=== PATIENT | female | born 1995 | race Caucasian/White ===

== ENCOUNTER 2017-01-22 21:33 | Inpatient (IN) | payer OTHER, MEDICAID ==
[~2017-01-22] VITALS: Ht 165.1 cm; Wt 90.7 kg
--- NOTE | ~2017-01-22 | OR ---
PATIENT'S NAME: LUDMILA [facility] AGE: 21 Y [address] ROOM: [place] [address] LOCATION: GOBS ADMIT DATE: 01/22/2017 OR/Procedure Report DISCHARGE DATE: FAMILY PHYSICIAN: Ilsa Christie MD ATTENDING PHYSICIAN: Ilsa Christie SURGEON: Ilsa Christie MD HOSPITALITY ASSOCIATE: DATE OF PROCEDURE: 01/22/2017 PROCEDURE: Ludmila is a 21-year-old, 2, para 0, who presents at 38 and 6 weeks gestational age with spontaneous rupture of membranes and some intermittent uterine contractions. heart tones were category 1. She was watched for an hour, had no cervical change, was 2 cm when she arrived. Labor was then augmented with Pitocin. She progressed to 3 to 4 cm, got an epidural, and finally progressed to complete. With approximately 1 hour of pushing, delivered a 7-pound and 1 ounce female at 1242 hours with a moderate shoulder dystocia, which was relieved with McBurney maneuver and suprapubic pressure. After the delivery of the , the nose and the mouth were suctioned. was placed on mother's tummy. were 8 at 1 minute and 9 at 5 minutes. Cord was then cut. Cord blood was collected. Placenta was delivered intact with a 3-vessel cord. There was some free flow of vaginal bleeding, which improved with fundal massage and IV oxytocin. The placenta was then delivered intact with a 3-vessel cord. The cervix was viewed and there was no tears. She had some small periurethral tears which were not bleeding and an abrasion at the inferior introitus, which was not bleeding. Estimated blood loss was 300 mL at delivery. Fluid was clear. Sponge and needle count were correct. Lumdila tolerated the delivery well and will continue with care. MD MIRACLE CHE/carolinal /[id number] d: 01/23/172029 t: 02/07/17 1500, OPERATIVE SUMMARY
[~2017-01-22 21:33] MED LIST: PRENATAL 1+1)(P1 TAB PO; TUMS200 MG PO; ZOFRAN4 MG PO
[2017-01-22 23:04] LABS: BASOPHIL % 0.2 %; EOSINOPHIL % 0.3 %; HEMATOCRIT 35.5 % (33.0-46.0); HEMOGLOBIN 11.7 g/dL (11.0-15.0); IMMATURE GRANULOCYTE # 0.1 K/uL (0.0-0.3); MCH 27.9 pg (27.0-34.0); MCV 84.5 fl (83.0-98.0); MONOCYTE # 0.4 K/uL (0.0-1.0); MONOCYTE % 4.6 %; MPV 11.7 fl (9.4-12.4); NEUTROPHIL # (ANC) 6.7 K/uL (1.8-7.8); NEUTROPHIL % 71.9 %; NRBC % 0 /100WBC (0-0.00); PLATELET COUNT 219 K/uL (150-450); WBC 9.3 K/uL (4.0-11.0)
--- NOTE | 2017-01-23 04:15 | NUR ---
Last VS: T:97.8 P:80 R:16 BP:120/68 Pain ratin. Last pain med: None given Medicated at: Effective: FHT: 135 Dilatation: 3.5 Effacement 50%: Station: -2 Significant event: PATIENT WOULD LIKE TO TRY WITHOUT EPIDURAL OR PAIN MEDICATION. PLANNING ON BOTTLE FEEDING.
--- NOTE | 2017-01-23 17:13 | NUR ---
VS WNL, fundus firm and small flow now, pt did received Metherin IM X1 dose and 2nd bag of Pitocin for free flow and clots after delivery, peng discontinued @ 1530 pt has not voided yet, No pain medications given since delivery pt has declined pain. Pt showered and room tidy completed i-drive activity well.
--- NOTE | 2017-01-24 04:24 | NUR ---
VSS, 2 Tylenol at 0311, fundus firm, midline, small flow
[2017-01-24 04:48] LABS: BASOPHIL % 0.2 %; EOSINOPHIL % 0.3 %; HEMOGLOBIN 9.2 g/dL (11.0-15.0); IMMATURE GRANULOCYTE # 0.1 K/uL (0.0-0.3); IMMATURE GRANULOCYTE % 0.9 %; LYMPHOCYTE # 2.8 K/uL (0.8-4.0); LYMPHOCYTE % 26.4 %; MCH 28.3 pg (27.0-34.0); MCV 85.5 fl (83.0-98.0); MONOCYTE # 0.7 K/uL (0.0-1.0); MONOCYTE % 6.5 %; MPV 11.4 fl (9.4-12.4); NEUTROPHIL % 65.7 %; NRBC % 0 /100WBC (0-0.00); RBC 3.25 M/uL (3.50-5.00); RDW-CV 13.2 % (11.9-14.6); WBC 10.6 K/uL (4.0-11.0)
[2017-01-24 04:50] LABS: HEMATOCRIT 27.8 % (33.0-46.0); MCHC 33.1 gm/dL (32.0-36.5); PLATELET COUNT 152 K/uL (150-450)
[2017-01-24] MEDS ORDERED: ACETAMINOPHEN325 MG PO (08:22)
== END 2017-01-24 15:50 | disposition disaster alternative care site (69) | DRG 775 ==
LOC: GOBS 21:33
PROVIDERS: Family Medicine; ADMIT Family Medicine
PROC: 10E0XZZ Delivery of Products of Conception, External Approach (ICD-10-PCS; principal; 2017-01-22)
DX: O66.0 Obstructed labor due to shoulder dystocia (principal); Z37.0 Single live birth; Z3A.38 38 weeks gestation of pregnancy
CPT/HCPCS: J2210; J2405; J2590; J3010; J7120